=== PATIENT | male | born 1955 | race Caucasian/White ===

== ENCOUNTER → 2018-09-21 | Outpatient (CLI) | payer BC ==
--- NOTE | 2018-09-21 10:10 | PCVCIMAG ---
EXAM: BILATERAL CAROTID DUPLEX INDICATION: Carotid Occlusive Disease. FINDINGS: Doppler Measurements (centimeters per second): RIGHT: Peak CCA-101, Peak ECA-129, Diastolic ICA-27, Peak ICA-74, ICA/CCA Ratio-0.7. LEFT: Peak CCA-106, Peak ECA-124, Diastolic ICA-40, Peak ICA-94, ICA/CCA Ratio-0.9. RIGHT CAROTID: The carotid bulb has mild plaque. The proximal internal carotid artery shows <40% stenosis. The common carotid artery shows no significant stenosis. The external carotid artery shows no significant stenosis. LEFT CAROTID: The carotid bulb has moderate plaque. The proximal internal carotid artery shows <40% stenosis. The common carotid artery shows no significant stenosis. The external carotid artery shows no significant stenosis. Antegrade flow in both vertebral arteries. IMPRESSION: <40% stenosis of the right internal carotid artery with mild plaque. <40% stenosis of the left internal carotid artery with moderate plaque. Incidental note is made of a 1.1 x 1.2 x 1.6 cm solid nodule inferior left thyroid lobe which is indeterminate. Please see thyroid ultrasound from today. LOC:[id number]
--- NOTE | 2018-09-21 10:20 | PCVCIMAG ---
EXAM: ULTRASOUND OF THE THYROID INDICATION: Thyroid nodules. FINDINGS: The right thyroid lobe measures 5.4 x 1.6 x 1.9 cm. The left thyroid lobe measures 3.9 x 2.1 x 1.4 cm. 0.6 x 0.5 x 0.7 cm solid nodule upper lateral right thyroid lobe. Adjacent to this is a 3.1 mm benign cyst. 0.7 cm solid nodule mid right thyroid lobe. 0.4 cm hypoechoic nodule lower right thyroid lobe. 1.2 x 1.5 x 1.8 cm solid nodule inferior left thyroid lobe. 0.5 x 0.6 x 0.8 cm solid nodule upper left thyroid lobe. 0.8 x 0.8 x 1.0 cm solid nodule left side of the thyroid isthmus. IMPRESSION: Multiple indeterminate thyroid nodules as reviewed above. The largest measures 1.8 cm and is located in the inferior left thyroid lobe. The second largest measures 1.0 cm located in the left side of the thyroid isthmus. Further evaluation by ENT is suggested. LOC:[id number]
== END | disposition home or self-care (01) ==
LOC: PCVCIMAG 09:13
PROVIDERS: ATTEND Internal Medicine Cardiovascular Disease
DX: E04.1 Nontoxic single thyroid nodule (principal); I77.9 Disorder of arteries and arterioles, unspecified; E78.49 Other hyperlipidemia
CPT/HCPCS: 76536; 93880

== ENCOUNTER → 2019-10-12 | Outpatient (CLI) | payer BC ==
--- NOTE | 2019-10-12 13:48 | PCVCIMAG ---
APPROVED REPORT Study performed: 10/12/2019 12:47:04 EXAM: Comprehensive 2D, Doppler, and color-flow Echocardiogram Patient Location: Echo lab Status: routine BSA: 2.24 HR: 71 bpmBP: 130/74 mmHg Rhythm: NSR Other Information Study Quality: Adequate Risk Factors: Cardiac Risk Factors: HTN Indications Pulmonary Embolism CAD 2D Dimensions IVSd: 14.33 (7-11mm) LVDd: 44.00 mm PWd: 14.96 (7-11mm) LVDs: 35.72 (25-40mm) Left Atrium: 49.49 (27-40mm) Aortic Root: 37.19 mm LV Single Plane 4CH: 52.63 % LV Single Plane 2CH: 59.16 % Biplane EF: 58.0 % Volumes Left Atrial Volume (Systole) Single Plane 4CH: 82.22 mLSingle Plane 2CH: 124.92 mL LA ESV Index: 47.00 mL/m2 Aortic Valve AoV Peak Noel.: 1.46 m/s AO Peak Gr.: 8.49 mmHgLVOT Max P.01 mmHg LVOT Max V: 0.87 m/s Mitral Valve E/A Ratio: 0.7 MV Decel. Time: 247.45 ms MV E Max Noel.: 0.44 m/s MV A Noel.: 0.59 m/s IVRT: 128.03 ms Pulmonary Valve PV Peak Noel.: 1.06 m/sPV Peak Gr.: 4.47 mmHg Pulmonary Vein P Vein S: 0.29 m/sP Vein A: 0.70 m/s P Vein D: 0.40 m/sP Vein A Dur.: 148.8 msec P Vein S/D Ratio: 0.73 Tricuspid Valve TR Peak Noel.: 2.61 m/s TR Peak Gr.: 27.20 mmHg Left Ventricle The left ventricle is normal size. There is normal LV segmental wall motion. Mild-moderate concentric left ventricular hypertrophy. Left ventricular systolic function is normal. The left ventricular ejection fraction is within the normal range. LVEF is 55-60%. Grade I - abnormal relaxation pattern. Right Ventricle The right ventricle is normal size. Not dilated post pulmonary embolism. The right ventricular systolic function is normal. Atria Left atrium is moderately dilated. The right atrium size is normal. Aortic Valve The aortic valve is normal in structure. No aortic regurgitation is present. There is no aortic valvular stenosis. Mitral Valve The mitral valve is normal in structure. There is no mitral valve regurgitation noted. No evidence of mitral valve stenosis. Tricuspid Valve The tricuspid valve is normal in structure. Mild tricuspid regurgitation with PAP of 34 mmHg. Pulmonic Valve The pulmonary valve is normal in structure. There is no pulmonic valvular regurgitation. Great Vessels The aortic root is normal in size. IVC is normal in size and collapses >50% with inspiration. Pericardium There is no pericardial effusion. There is no pleural effusion. <Conclusion> The left ventricle is normal size. LVEF is 55-60%. Grade I - abnormal relaxation pattern. The right ventricle is normal size. Not dilated post pulmonary embolism. Left atrium is moderately dilated. The aortic valve is normal in structure. There is no mitral valve regurgitation noted. Mild tricuspid regurgitation with PAP of 34 mmHg. The aortic root is normal in size. There is no pericardial effusion.
== END | disposition home or self-care (01) ==
LOC: PCVCIMAG 12:52
PROVIDERS: ATTEND Internal Medicine Cardiovascular Disease
DX: I07.1 Rheumatic tricuspid insufficiency (principal); I25.10 Atherosclerotic heart disease of native coronary artery without angina pectoris; I10 Essential (primary) hypertension; I26.99 Other pulmonary embolism without acute cor pulmonale
CPT/HCPCS: 93306